=== PATIENT | female | born 1960 | race Asian ===

== ENCOUNTER 2018-04-02 22:12 | Inpatient (IN) | payer BC ==
[2018-04-03] MEDS ORDERED: hydrALAzine 20 MG INJ IV (03:30)
[2018-04-03] MEDS ORDERED: morphine SULFATE/PF (2 MG/2 ML) SYG IV (03:30)
[2018-04-03] MEDS ORDERED: LORAZEPAM 2 MG INJ IV (03:30)
[2018-04-03] MEDS ORDERED: DOCUSATE SODIUM 100 MG CAP PO (03:30)
[2018-04-03] MEDS ORDERED: ACETAMINOPHEN 325 MG TAB PO (03:30)
[2018-04-03] MEDS ORDERED: NITROGLYCERIN (SL) 0.4 MG TAB SL (03:30)
[2018-04-03] MEDS ORDERED: MAGNESIUM HYDROXIDE 30ML CUP PO (03:30)
[2018-04-03] MEDS ORDERED: ALBUTEROL/IPRATROPIUM (NEB) 3 ML AMP HHN (03:30)
[2018-04-03] MEDS ORDERED: HYDROCODONE/APAP (5/325) TAB PO (03:30)
[2018-04-03] MEDS ORDERED: ONDANSETRON 4 MG INJ IV (03:30)
[2018-04-03] MEDS ORDERED: NACL 0.9% 3 ML SYG IV (03:30)
[2018-04-03] MEDS: LORAZEPAM 2 MG INJ IV (03:57)
[2018-04-03] MEDS: SOD CHLORIDE 0.45% 1,000 ML IV ×2 (04:12→18:28)
[2018-04-03] MEDS: CEFTRIAXONE 1 GM/50 ML (PMX) 50 ML IVPB (04:12)
[2018-04-03] MEDS ORDERED: PENDING SANTYL ORDER FOR WOUND CARE XX (05:00)
[2018-04-03] MEDS: PANTOPRAZOLE 40 MG INJ IV (05:17)
[2018-04-03 05:35] LABS: ADD MAN DIFF? NO
[2018-04-03 05:38] LABS: BASOPHIL # 0.1 10^3/ul (0.0-0.1); BASOPHILS % 0.7 % (0.0-2.0); EOSINOPHILS # 0.2 10^3/ul (0.0-0.5); EOSINOPHILS % 2.7 % (0.0-7.0); HEMATOCRIT 31.4 % (37.0-47.0); HEMOGLOBIN 10.9 g/dl (12.0-16.0); LYMPHOCYTES # 0.9 10^3/ul (0.8-2.9); LYMPHOCYTES % 12.2 % (15.0-51.0); MEAN CORPUSCULAR HEMOGLOBIN 31.1 pg (29.0-33.0); MEAN CORPUSCULAR HGB CONC 34.7 g/dl (32.0-37.0); MEAN CORPUSCULAR VOLUME 89.5 fl (82.0-101.0); MEAN PLATELET VOLUME 8.1 fl (7.4-10.4); MONOCYTE # 0.4 10^3/ul (0.3-0.9); MONOCYTES % 6.1 % (0.0-11.0); NEUTROPHIL # 5.5 10^3/ul (1.6-7.5); PLATELET COUNT 293 10^3/UL (140-415); RED BLOOD COUNT 3.51 10^6/ul (4.20-5.40); RED CELL DISTRIBUTION WIDTH 11.9 % (11.5-14.5)
[2018-04-03 05:58] LABS: ANION GAP 12 (5-13); BLOOD UREA NITROGEN 4 mg/dl (7-20); CALCIUM 8.6 mg/dl (8.4-10.2); CARBON DIOXIDE 20 mmol/L (21-31); CHLORIDE 108 mmol/L (97-110); Estimated GFR > 60 mL/min (>60); GLUCOSE 79 mg/dl (70-220); POTASSIUM 3.2 mmol/L (3.5-5.1); SODIUM 140 mmol/L (135-144)
[2018-04-03 05:59] LABS: INR 0.99; PARTIAL THROMBOPLASTIN TIME 29.2 Sec (23.0-35.0); PROTIME 13.2 Sec (11.9-14.9)
[2018-04-03] MEDS: LEVETIRACETAM 500 MG (PMX) 100 ML IVPB (09:54)
[2018-04-03] MEDS: HEPARIN 5,000 UNIT/1 ML VIAL SC ×2 (10:01→22:22)
[2018-04-03 14:49] LABS: ADD UMIC YES; UR ASCORBIC ACID NEGATIVE (NEGATIVE); UR BACTERIA FEW /HPF (NONE SEEN); UR BILIRUBIN (Dip) NEGATIVE (NEGATIVE); UR BLOOD (Dip) 1+ mg/dL (NEGATIVE); UR BUDDING YEAST FEW /HPF (NONE SEEN); UR CLARITY CLOUDY (CLEAR); UR COLOR YELLOW (YELLOW); UR GLUCOSE (Dip) NEGATIVE (NEGATIVE); UR KETONES (Dip) 1+ mg/dL (NEGATIVE); UR LEUKOCYTE ESTERASE (Dip) 3+ Leu/ul (NEGATIVE); UR MUCUS FEW /HPF (NONE SEEN); UR NITRITE (Dip) POSITIVE (NEGATIVE); UR RBC 1 /HPF (0-5); UR SPECIFIC GRAVITY (Dip) 1.009 (1.003-1.030); UR TOTAL PROTEIN (Dip) NEGATIVE (NEGATIVE); UR UROBILINOGEN (Dip) NEGATIVE (NEGATIVE); UR WBC 17 /HPF (0-5)
[2018-04-03] MEDS: POTASSIUM CHLORIDE 100 ML IVPB ×2 (15:21→18:28)
[2018-04-04] MEDS: CEFTRIAXONE 1 GM/50 ML (PMX) 50 ML IVPB (04:12)
[2018-04-04] MEDS: SOD CHLORIDE 0.45% 1,000 ML IV (06:43)
[2018-04-04] MEDS: PANTOPRAZOLE 40 MG INJ IV (06:43)
[2018-04-04] MEDS ORDERED: ETOMIDATE 20 MG INJ (07:00)
[2018-04-04] MEDS ORDERED: SUCCINYLCHOLINE CHLORIDE 100 MG/5 ML SYG IV (07:00)
[2018-04-04 07:51] LABS: ADD MAN DIFF? NO
[2018-04-04 08:06] LABS: WHITE BLOOD COUNT 11.2 10^3/ul (4.8-10.8)
[2018-04-04 08:06] LABS: BASOPHIL # 0.1 10^3/ul (0.0-0.1); BASOPHILS % 0.5 % (0.0-2.0); EOSINOPHILS # 0.1 10^3/ul (0.0-0.5); EOSINOPHILS % 1.3 % (0.0-7.0); HEMATOCRIT 35.8 % (37.0-47.0); HEMOGLOBIN 12.4 g/dl (12.0-16.0); LYMPHOCYTES # 0.8 10^3/ul (0.8-2.9); LYMPHOCYTES % 7.3 % (15.0-51.0); MEAN CORPUSCULAR HEMOGLOBIN 31.4 pg (29.0-33.0); MEAN CORPUSCULAR HGB CONC 34.6 g/dl (32.0-37.0); MEAN CORPUSCULAR VOLUME 90.6 fl (82.0-101.0); MEAN PLATELET VOLUME 9.5 fl (7.4-10.4); MONOCYTE # 0.9 10^3/ul (0.3-0.9); MONOCYTES % 7.8 % (0.0-11.0); NEUTROPHIL # 9.3 10^3/ul (1.6-7.5); NEUTROPHILS % 82.9 % (39.0-77.0); PLATELET COUNT 270 10^3/UL (140-415); RED BLOOD COUNT 3.95 10^6/ul (4.20-5.40); RED CELL DISTRIBUTION WIDTH 11.9 % (11.5-14.5)
[2018-04-04 08:28] LABS: ANION GAP 7 (5-13); BLOOD UREA NITROGEN 3 mg/dl (7-20); CALCIUM 8.8 mg/dl (8.4-10.2); CARBON DIOXIDE 19 mmol/L (21-31); CHLORIDE 105 mmol/L (97-110); CHOL/HDL RATIO 3.8 RATIO; CHOLESTEROL 173 mg/dl (100-200); CREATININE 0.27 mg/dl (0.44-1.00); Estimated GFR > 60 mL/min (>60); GLUCOSE 74 mg/dl (70-220); HDL CHOLESTEROL 45 mg/dl (35-98); LDL CHOLESTEROL,CALCULATED 116 mg/dl; MAGNESIUM 1.7 mg/dl (1.7-2.5); PHOSPHORUS 4.1 mg/dl (2.5-4.9); POTASSIUM 4.4 mmol/L (3.5-5.1); SODIUM 131 mmol/L (135-144); TRIGLYCERIDES 60 mg/dl (0-149)
[2018-04-04] MEDS: PHENYTOIN 1,000 MG in SOD CHLORIDE 0.9% 100 ML IV (08:57)
[2018-04-04] MEDS: LEVETIRACETAM 500 MG (PMX) 100 ML IVPB ×3 (08:57→23:00)
[2018-04-04 09:23] LABS: ALANINE AMINOTRANSFERASE 19 IU/L (13-69); ALBUMIN 3.2 g/dl (3.3-4.9); ASPARTATE AMINO TRANSFERASE 26 IU/L (15-46); BILIRUBIN,INDIRECT 0.1 mg/dl (0-1.1); BILIRUBIN,TOTAL 0.1 mg/dl (0.2-1.3); TOTAL PROTEIN 5.8 g/dl (6.1-8.1)
[2018-04-04 09:24] LABS: ALKALINE PHOSPHATASE < 20 IU/L (42-121)
[2018-04-04] MEDS: HEPARIN 5,000 UNIT/1 ML VIAL SC ×2 (10:52→22:00)
[2018-04-04 11:47] LABS: HEMOGLOBIN A1C 5.5 % (0-5.9)
[2018-04-04] MEDS: DEXTROSE 5%-0.45% NACL 1,000 ML IV (17:26)
[2018-04-04] MEDS ORDERED: PHENOBARBITAL 65 MG INJ IV ×4 (17:30→20:30)
[2018-04-04] MEDS ORDERED: PHENOBARBITAL IVPB (18:30)
[2018-04-04] MEDS ORDERED: SOD CHLORIDE 0.9% IVPB (18:30)
[2018-04-04] MEDS: PHENOBARBITAL IV (19:30)
[2018-04-04] MEDS: SOD CHLORIDE 0.9% IV (19:30)
[2018-04-04 20:59] LABS: AADO2 Arterial 60.7 mmHg (7.0-24.0); Allen Test ACCEPTAB; Arterial Base Excess -7.2 mmol/L (-3.0-3); Arterial Blood Gas Oxygen Sat 99.5 mmHG (95.0-98.0); Arterial COHb 0.3 % (0.0-3.0); Arterial Fraction of Oxyhgb 98.8 % (93.0-99.0); Arterial MetHb 0.4 % (0.0-1.5); Arterial pCO2 26.4 mmhg (35-45); MODE VENT - AC; Site Right Radial
[2018-04-04] MEDS: NORepinephrine 8MG/250 ML (PMX 250 ML IV (21:00)
[2018-04-04] MEDS: PROPOFOL 100 ML IV ×2 (21:00)
[2018-04-04] MEDS ORDERED: NORepinephrine 8MG/250 ML (PMX 250 ML (22:14)
[2018-04-05] MEDS ORDERED: SOD CHLORIDE 0.9% 250 ML IV
[2018-04-05] MEDS: SOD CHLORIDE 0.9% 1,000 ML IV
[2018-04-05 01:08] LABS: LACTIC ACID 1.5 mmol/L (0.5-2.0)
[2018-04-05] MEDS: CEFTRIAXONE 1 GM/50 ML (PMX) 50 ML IVPB (03:30)
[2018-04-05] MEDS ORDERED: VANCOMYCIN IV PER PHARMACY XX (04:30)
[2018-04-05 05:11] LABS: ADD MAN DIFF? NO
[2018-04-05 05:30] LABS: BASOPHILS % 0.3 % (0.0-2.0); EOSINOPHILS # 0.1 10^3/ul (0.0-0.5); EOSINOPHILS % 0.6 % (0.0-7.0); HEMATOCRIT 32.5 % (37.0-47.0); HEMOGLOBIN 11.7 g/dl (12.0-16.0); LYMPHOCYTES # 1.3 10^3/ul (0.8-2.9); LYMPHOCYTES % 10.9 % (15.0-51.0); MEAN CORPUSCULAR HEMOGLOBIN 31.6 pg (29.0-33.0); MEAN CORPUSCULAR VOLUME 87.8 fl (82.0-101.0); MEAN PLATELET VOLUME 8.9 fl (7.4-10.4); MONOCYTE # 0.7 10^3/ul (0.3-0.9); MONOCYTES % 6.2 % (0.0-11.0); NEUTROPHIL # 9.8 10^3/ul (1.6-7.5); NEUTROPHILS % 81.7 % (39.0-77.0); PLATELET COUNT 290 10^3/UL (140-415); RED CELL DISTRIBUTION WIDTH 11.7 % (11.5-14.5)
[2018-04-05] MEDS: PANTOPRAZOLE 40 MG INJ IV (05:38)
[2018-04-05] MEDS: VANCOMYCIN 1 GM 250 ML IVPB (05:39)
[2018-04-05] MEDS: DEXTROSE 5%-0.45% NACL 1,000 ML IV ×2 (05:42→19:26)
[2018-04-05] MEDS ORDERED: VANCOMYCIN 750 MG (PMX) 250 ML IVPB (06:00)
[2018-04-05 06:02] LABS: PHENYTOIN (DILANTIN) 19.2 ug/ml (10.0-20.0)
[2018-04-05 06:13] LABS: ANION GAP 5 (5-13); BLOOD UREA NITROGEN 3 mg/dl (7-20); CALCIUM 8.3 mg/dl (8.4-10.2); CARBON DIOXIDE 17 mmol/L (21-31); CHLORIDE 111 mmol/L (97-110); CREATININE 0.28 mg/dl (0.44-1.00); Estimated GFR > 60 mL/min (>60); GLUCOSE 201 mg/dl (70-220); POTASSIUM 3.7 mmol/L (3.5-5.1); SODIUM 133 mmol/L (135-144)
[2018-04-05 07:27] LABS: AADO2 Arterial 38.9 mmHg (7.0-24.0); Allen Test ACCEPTAB; Arterial Base Excess -6.7 mmol/L (-3.0-3); Arterial Blood Gas Oxygen Sat 98.8 mmHG (95.0-98.0); Arterial COHb 0.3 % (0.0-3.0); Arterial Fraction of Oxyhgb 98.3 % (93.0-99.0); Arterial HCO3 16.8 mmol/L (22.0-26.0); Arterial MetHb 0.2 % (0.0-1.5); Arterial pCO2 27.8 mmhg (35-45); MODE VENT - AC; Site Right Radial
[2018-04-05 07:33] LABS: LACTIC ACID 1.6 mmol/L (0.5-2.0)
[2018-04-05] MEDS: PROPOFOL 100 ML IV ×2 (09:00→21:00)
[2018-04-05] MEDS: LEVETIRACETAM 500 MG (PMX) 100 ML IVPB (09:58)
[2018-04-05] MEDS: HEPARIN 5,000 UNIT/1 ML VIAL SC ×2 (09:58→21:19)
[2018-04-05] MEDS ORDERED: BALSAM PERU/CASTOR OIL 60 GM TUBE TOP (10:30)
[2018-04-05] MEDS: FLUCONAZOLE 200 MG (PMX) 100 ML IVPB (12:25)
[2018-04-05 12:42] LABS: ADD UMIC YES; UR ASCORBIC ACID NEGATIVE (NEGATIVE); UR BILIRUBIN (Dip) NEGATIVE (NEGATIVE); UR BLOOD (Dip) 2+ mg/dL (NEGATIVE); UR CLARITY TURBID (CLEAR); UR COLOR AMBER (YELLOW); UR GLUCOSE (Dip) NEGATIVE (NEGATIVE); UR KETONES (Dip) TRACE mg/dL (NEGATIVE); UR LEUKOCYTE ESTERASE (Dip) 1+ Leu/ul (NEGATIVE); UR NITRITE (Dip) NEGATIVE (NEGATIVE); UR RBC 0 /HPF (0-5); UR SPECIFIC GRAVITY (Dip) 1.009 (1.003-1.030); UR TOTAL PROTEIN (Dip) 2+ mg/dl (NEGATIVE); UR UROBILINOGEN (Dip) NEGATIVE (NEGATIVE); UR WBC 0 /HPF (0-5)
[2018-04-05 12:47] LABS: UR BACTERIA MANY /HPF (NONE SEEN); URINE RBCS >50 /HPF (0)
[2018-04-05 12:49] LABS: UR AMORPHOUS CRYSTAL MANY /HPF (NONE SEEN); URINE SPECIFIC GRAVITY (Dip) 1.009 (1.003-1.030)
[2018-04-05] MEDS: LIDOCAINE 1% (MPF) 5 ML VIAL SC (13:15)
[2018-04-05] MEDS: COLLAGENASE 5 GM (UD JAR) TOP (14:52)
[2018-04-05] MEDS: NORepinephrine 8MG/250 ML (PMX 250 ML IV (16:03)
[2018-04-05] MEDS: PHENOBARBITAL 65 MG INJ IV ×2 (16:16→21:15)
[2018-04-06] MEDS: CEFTRIAXONE 1 GM/50 ML (PMX) 50 ML IVPB (03:32)
[2018-04-06 03:52] LABS: PHENOBARBITAL 26.6 mg/L (15.0-40.0)
[2018-04-06 05:25] LABS: ADD MAN DIFF? NO
[2018-04-06 06:10] LABS: BASOPHILS % 0.3 % (0.0-2.0); EOSINOPHILS # 0.2 10^3/ul (0.0-0.5); EOSINOPHILS % 1.6 % (0.0-7.0); HEMATOCRIT 36.3 % (37.0-47.0); HEMOGLOBIN 12.8 g/dl (12.0-16.0); LYMPHOCYTES # 1.2 10^3/ul (0.8-2.9); LYMPHOCYTES % 10.1 % (15.0-51.0); MEAN CORPUSCULAR HGB CONC 35.3 g/dl (32.0-37.0); MEAN CORPUSCULAR VOLUME 90.8 fl (82.0-101.0); MEAN PLATELET VOLUME 8.6 fl (7.4-10.4); MONOCYTE # 1.4 10^3/ul (0.3-0.9); MONOCYTES % 11.6 % (0.0-11.0); NEUTROPHIL # 9.1 10^3/ul (1.6-7.5); NEUTROPHILS % 76.1 % (39.0-77.0); PLATELET COUNT 257 10^3/UL (140-415); RED CELL DISTRIBUTION WIDTH 12.5 % (11.5-14.5)
[2018-04-06] MEDS: PANTOPRAZOLE 40 MG INJ IV (06:10)
[2018-04-06 06:52] LABS: ANION GAP 10 (5-13); BLOOD UREA NITROGEN 3 mg/dl (7-20); CALCIUM 8.5 mg/dl (8.4-10.2); CARBON DIOXIDE 16 mmol/L (21-31); CHLORIDE 110 mmol/L (97-110); CREATININE 0.62 mg/dl (0.44-1.00); Estimated GFR > 60 mL/min (>60); GLUCOSE 159 mg/dl (70-220); SODIUM 136 mmol/L (135-144)
[2018-04-06 06:53] LABS: POTASSIUM 3.9 mmol/L (3.5-5.1)
[2018-04-06] MEDS: PHENOBARBITAL 65 MG INJ IV ×2 (08:43→20:43)
[2018-04-06] MEDS: HEPARIN 5,000 UNIT/1 ML VIAL SC ×2 (08:44→20:44)
[2018-04-06] MEDS: COLLAGENASE 5 GM (UD JAR) TOP (08:47)
[2018-04-06] MEDS: DEXTROSE 5%-0.45% NACL 1,000 ML IV ×2 (08:50→22:32)
[2018-04-06] MEDS: PROPOFOL 100 ML IV ×2 (09:00→20:44)
[2018-04-06] MEDS: FLUCONAZOLE 200 MG (PMX) 100 ML IVPB (11:39)
[2018-04-06] MEDS: NORepinephrine 8MG/250 ML (PMX 250 ML IV (14:09)
[2018-04-06] MEDS: VANCOMYCIN 750 MG (PMX) 250 ML IVPB (16:50)
[2018-04-06] MEDS ORDERED: VANCOMYCIN IV PER PHARMACY XX (17:00)
[2018-04-07] MEDS: CEFTRIAXONE 1 GM/50 ML (PMX) 50 ML IVPB (02:56)
[2018-04-07 04:50] LABS: ADD MAN DIFF? NO
[2018-04-07 04:52] LABS: BASOPHIL # 0.1 10^3/ul (0.0-0.1); BASOPHILS % 0.5 % (0.0-2.0); EOSINOPHILS # 0.3 10^3/ul (0.0-0.5); HEMATOCRIT 31.8 % (37.0-47.0); HEMOGLOBIN 11.1 g/dl (12.0-16.0); LYMPHOCYTES # 1.2 10^3/ul (0.8-2.9); LYMPHOCYTES % 10.5 % (15.0-51.0); MEAN CORPUSCULAR HEMOGLOBIN 31.3 pg (29.0-33.0); MEAN CORPUSCULAR HGB CONC 34.9 g/dl (32.0-37.0); MEAN CORPUSCULAR VOLUME 89.6 fl (82.0-101.0); MONOCYTES % 9.2 % (0.0-11.0); NEUTROPHIL # 8.5 10^3/ul (1.6-7.5); NEUTROPHILS % 76.4 % (39.0-77.0); PLATELET COUNT 166 10^3/UL (140-415); RED BLOOD COUNT 3.55 10^6/ul (4.20-5.40); RED CELL DISTRIBUTION WIDTH 12.6 % (11.5-14.5)
[2018-04-07 04:52] LABS: WHITE BLOOD COUNT 11.2 10^3/ul (4.8-10.8)
[2018-04-07 05:11] LABS: MAGNESIUM 1.5 mg/dl (1.7-2.5)
[2018-04-07 05:11] LABS: PHOSPHORUS 1.8 mg/dl (2.5-4.9)
[2018-04-07] MEDS: PANTOPRAZOLE 40 MG INJ IV (05:12)
[2018-04-07 05:15] LABS: ANION GAP 4 (5-13); BLOOD UREA NITROGEN 6 mg/dl (7-20); CALCIUM 7.8 mg/dl (8.4-10.2); CARBON DIOXIDE 24 mmol/L (21-31); CHLORIDE 111 mmol/L (97-110); CREATININE 0.58 mg/dl (0.44-1.00); Estimated GFR > 60 mL/min (>60); GLUCOSE 148 mg/dl (70-220); SODIUM 139 mmol/L (135-144)
[2018-04-07 05:21] LABS: POTASSIUM 2.6 mmol/L (3.5-5.1)
[2018-04-07] MEDS: MAGNESIUM SULFATE 3 GM in DEXTROSE 5% 100 ML IVPB (05:54)
[2018-04-07] MEDS: POTASSIUM CHLORIDE 100 ML IVPB ×3 (05:54→09:50)
[2018-04-07] MEDS: PHENOBARBITAL 65 MG INJ IV (08:32)
[2018-04-07] MEDS: COLLAGENASE 5 GM (UD JAR) TOP (08:32)
[2018-04-07] MEDS: HEPARIN 5,000 UNIT/1 ML VIAL SC ×2 (08:32→21:07)
[2018-04-07] MEDS: PROPOFOL 100 ML IV ×2 (09:00→19:37)
[2018-04-07] MEDS ORDERED: morphine 2 MG INJ IV (11:30)
[2018-04-07] MEDS: DEXTROSE 5%-0.45% NACL 1,000 ML IV (11:46)
[2018-04-07] MEDS: FLUCONAZOLE 200 MG (PMX) 100 ML IVPB (12:36)
[2018-04-07] MEDS: CEFEPIME 1GM/50 ML (PMX) 50 ML IVPB ×2 (13:46→21:06)
[2018-04-07] MEDS: NORepinephrine 8MG/250 ML (PMX 250 ML IV (15:22)
[2018-04-07] MEDS: VANCOMYCIN 750 MG (PMX) 250 ML IVPB (16:44)
[2018-04-08] MEDS: DEXTROSE 5%-0.45% NACL 1,000 ML IV ×2 (01:59→20:16)
[2018-04-08 04:55] LABS: ADD MAN DIFF? NO
[2018-04-08 05:00] LABS: BASOPHILS % 0.4 % (0.0-2.0); EOSINOPHILS # 0.6 10^3/ul (0.0-0.5); EOSINOPHILS % 5.3 % (0.0-7.0); HEMATOCRIT 27.6 % (37.0-47.0); HEMOGLOBIN 9.6 g/dl (12.0-16.0); LYMPHOCYTES # 0.9 10^3/ul (0.8-2.9); LYMPHOCYTES % 8.5 % (15.0-51.0); MEAN CORPUSCULAR HEMOGLOBIN 31.6 pg (29.0-33.0); MEAN CORPUSCULAR HGB CONC 34.8 g/dl (32.0-37.0); MEAN CORPUSCULAR VOLUME 90.8 fl (82.0-101.0); MEAN PLATELET VOLUME 9.6 fl (7.4-10.4); MONOCYTE # 1.1 10^3/ul (0.3-0.9); MONOCYTES % 10.7 % (0.0-11.0); NEUTROPHIL # 7.9 10^3/ul (1.6-7.5); NEUTROPHILS % 74.6 % (39.0-77.0); PLATELET COUNT 160 10^3/UL (140-415); RED BLOOD COUNT 3.04 10^6/ul (4.20-5.40)
[2018-04-08 05:00] LABS: WHITE BLOOD COUNT 10.5 10^3/ul (4.8-10.8)
[2018-04-08] MEDS: PANTOPRAZOLE 40 MG INJ IV (05:09)
[2018-04-08 05:42] LABS: ANION GAP 4 (5-13); BLOOD UREA NITROGEN 10 mg/dl (7-20); CALCIUM 7.8 mg/dl (8.4-10.2); CARBON DIOXIDE 26 mmol/L (21-31); CHLORIDE 103 mmol/L (97-110); Estimated GFR > 60 mL/min (>60); GLUCOSE 157 mg/dl (70-220); SODIUM 133 mmol/L (135-144)
[2018-04-08 05:45] LABS: PHOSPHORUS 1.6 mg/dl (2.5-4.9)
[2018-04-08 05:45] LABS: MAGNESIUM 2.1 mg/dl (1.7-2.5)
[2018-04-08] MEDS: POTASSIUM CHLORIDE 100 ML IVPB ×3 (08:32→14:25)
[2018-04-08] MEDS: PROPOFOL 100 ML IV ×2 (08:33→20:09)
[2018-04-08] MEDS: SOD PHOS MONO/DIBAS 250 MG TAB NGT (10:22)
[2018-04-08] MEDS: CEFEPIME 1GM/50 ML (PMX) 50 ML IVPB ×2 (10:22→20:16)
[2018-04-08] MEDS: COLLAGENASE 5 GM (UD JAR) TOP (10:22)
[2018-04-08] MEDS: HEPARIN 5,000 UNIT/1 ML VIAL SC ×2 (10:27→20:18)
[2018-04-08] MEDS: FLUCONAZOLE 200 MG (PMX) 100 ML IVPB (12:29)
[2018-04-08 14:10] LABS: HEPATITIS C VIRAL ANTIBODY NEGATIVE (NEGATIVE)
[2018-04-08 14:29] LABS: HEPATITIS B SURFACE ANTIGEN POSITIVE (NEGATIVE)
[2018-04-08] MEDS: POTASSIUM PHOSPHATE 20 MEQ in SOD CHLORIDE 0.9% 250 ML IVPB (17:15)
[2018-04-08 19:55] LABS: RAPID PLASMA REAGIN NONREACTIVE (NR)
[2018-04-08] MEDS: LEVETIRACETAM 500 MG (PMX) 100 ML IVPB (20:13)
[2018-04-09] MEDS: DEXTROSE 5%-0.45% NACL 1,000 ML IV (03:40)
[2018-04-09 04:55] LABS: ADD MAN DIFF? NO
[2018-04-09 05:00] LABS: BASOPHILS % 0.3 % (0.0-2.0); EOSINOPHILS # 0.4 10^3/ul (0.0-0.5); EOSINOPHILS % 3.7 % (0.0-7.0); HEMATOCRIT 24.2 % (37.0-47.0); LYMPHOCYTES % 10.3 % (15.0-51.0); MEAN CORPUSCULAR HGB CONC 33.1 g/dl (32.0-37.0); MEAN CORPUSCULAR VOLUME 96.8 fl (82.0-101.0); MEAN PLATELET VOLUME 10.5 fl (7.4-10.4); MONOCYTE # 1.1 10^3/ul (0.3-0.9); MONOCYTES % 11.8 % (0.0-11.0); NEUTROPHIL # 6.9 10^3/ul (1.6-7.5); NEUTROPHILS % 73.4 % (39.0-77.0); PLATELET COUNT 151 10^3/UL (140-415); RED CELL DISTRIBUTION WIDTH 13.4 % (11.5-14.5)
[2018-04-09 05:00] LABS: WHITE BLOOD COUNT 9.4 10^3/ul (4.8-10.8)
[2018-04-09 05:06] LABS: AADO2 Arterial 11.4 mmHg (7.0-24.0); Allen Test ACCEPTAB; Arterial Blood Gas Oxygen Sat 98.7 mmHG (95.0-98.0); Arterial COHb 0.3 % (0.0-3.0); Arterial Fraction of Oxyhgb 98.2 % (93.0-99.0); Arterial HCO3 22.5 mmol/L (22.0-26.0); Arterial MetHb 0.2 % (0.0-1.5); Arterial pCO2 32.9 mmhg (35-45); MODE VENT - AC; Site Right Radial
[2018-04-09] MEDS: PANTOPRAZOLE 40 MG INJ IV (05:08)
[2018-04-09 05:11] LABS: POSITIVE DIFF @See below
[2018-04-09 05:24] LABS: LACTIC ACID 1.1 mmol/L (0.5-2.0)
[2018-04-09 05:25] LABS: PHOSPHORUS 2.3 mg/dl (2.5-4.9)
[2018-04-09 06:45] LABS: ANION GAP 3 (5-13); BLOOD UREA NITROGEN 10 mg/dl (7-20); CALCIUM 7.6 mg/dl (8.4-10.2); CARBON DIOXIDE 23 mmol/L (21-31); CHLORIDE 104 mmol/L (97-110); CREATININE 0.47 mg/dl (0.44-1.00); Estimated GFR > 60 mL/min (>60); GLUCOSE 146 mg/dl (70-220); POTASSIUM 4.6 mmol/L (3.5-5.1); SODIUM 130 mmol/L (135-144)
[2018-04-09] MEDS: PROPOFOL 100 ML IV ×2 (09:00→21:00)
[2018-04-09] MEDS: COLLAGENASE 5 GM (UD JAR) TOP (09:52)
[2018-04-09] MEDS: CEFEPIME 1GM/50 ML (PMX) 50 ML IVPB ×2 (09:53→20:46)
[2018-04-09] MEDS: DEXTROSE 5%-LR 1,000 ML IV (09:54)
[2018-04-09] MEDS: HEPARIN 5,000 UNIT/1 ML VIAL SC ×2 (10:09→20:48)
[2018-04-09 11:17] LABS: OCCULT BLOOD STOOL NEGATIVE (NEGATIVE)
[2018-04-09] MEDS: LEVETIRACETAM 500 MG (PMX) 100 ML IVPB ×2 (12:16→20:46)
[2018-04-09] MEDS: NORepinephrine 8MG/250 ML (PMX 250 ML IV (16:40)
[2018-04-10 04:52] LABS: ADD MAN DIFF? NO
[2018-04-10 05:09] LABS: ABNORMAL IP MESSAGE 1; BASOPHIL # 0.1 10^3/ul (0.0-0.1); BASOPHILS % 0.5 % (0.0-2.0); EOSINOPHILS # 0.4 10^3/ul (0.0-0.5); EOSINOPHILS % 3.6 % (0.0-7.0); HEMATOCRIT 26.4 % (37.0-47.0); HEMOGLOBIN 8.9 g/dl (12.0-16.0); LYMPHOCYTES # 1.5 10^3/ul (0.8-2.9); LYMPHOCYTES % 14.2 % (15.0-51.0); MEAN CORPUSCULAR HEMOGLOBIN 31.2 pg (29.0-33.0); MEAN CORPUSCULAR HGB CONC 33.7 g/dl (32.0-37.0); MEAN CORPUSCULAR VOLUME 92.6 fl (82.0-101.0); MEAN PLATELET VOLUME 11.2 fl (7.4-10.4); MONOCYTE # 1.5 10^3/ul (0.3-0.9); MONOCYTES % 14.9 % (0.0-11.0); NEUTROPHIL # 6.8 10^3/ul (1.6-7.5); NEUTROPHILS % 66.1 % (39.0-77.0); RED BLOOD COUNT 2.85 10^6/ul (4.20-5.40); RED CELL DISTRIBUTION WIDTH 13.2 % (11.5-14.5)
[2018-04-10 05:09] LABS: WHITE BLOOD COUNT 10.3 10^3/ul (4.8-10.8)
[2018-04-10 05:14] LABS: POSITIVE DIFF @See below
[2018-04-10 05:16] LABS: LACTIC ACID 1.4 mmol/L (0.5-2.0)
[2018-04-10 05:18] LABS: ANION GAP 1 (5-13); BLOOD UREA NITROGEN 11 mg/dl (7-20); CALCIUM 7.7 mg/dl (8.4-10.2); CARBON DIOXIDE 29 mmol/L (21-31); CHLORIDE 105 mmol/L (97-110); CREATININE 0.48 mg/dl (0.44-1.00); Estimated GFR > 60 mL/min (>60); GLUCOSE 138 mg/dl (70-220); POTASSIUM 3.7 mmol/L (3.5-5.1); SODIUM 135 mmol/L (135-144)
[2018-04-10] MEDS: PANTOPRAZOLE 40 MG INJ IV (05:43)
[2018-04-10 08:01] LABS: PLATELET COUNT 108 10^3/UL (140-415)
[2018-04-10] MEDS: LEVETIRACETAM 500 MG (PMX) 100 ML IVPB (08:18)
[2018-04-10] MEDS: COLLAGENASE 5 GM (UD JAR) TOP (08:20)
[2018-04-10] MEDS: HEPARIN 5,000 UNIT/1 ML VIAL SC ×2 (08:22→20:40)
[2018-04-10] MEDS: PROPOFOL 100 ML IV ×2 (09:00→21:00)
[2018-04-10] MEDS: CEFEPIME 1GM/50 ML (PMX) 50 ML IVPB ×2 (09:43→20:38)
[2018-04-10 11:03] LABS: PHOSPHORUS 3.6 mg/dl (2.5-4.9)
[2018-04-10 12:53] LABS: VARICELLA-ZOSTER VIRUS AB IgM 0.26
[2018-04-10] MEDS: BALSAM PERU/CASTOR OIL 60 GM TUBE TOP ×2 (15:00→20:45)
[2018-04-10] MEDS: LEVETIRACETAM IV 250 MG in DEXTROSE 5% 100 ML IVPB (20:38)
[2018-04-11 00:53] LABS: PHENOBARBITAL 17.4 mg/L (15.0-40.0)
[2018-04-11 05:29] LABS: ADD MAN DIFF? NO
[2018-04-11 05:44] LABS: BASOPHILS % 0.3 % (0.0-2.0); EOSINOPHILS # 0.4 10^3/ul (0.0-0.5); EOSINOPHILS % 3.6 % (0.0-7.0); HEMATOCRIT 25.8 % (37.0-47.0); HEMOGLOBIN 8.7 g/dl (12.0-16.0); LYMPHOCYTES # 1.4 10^3/ul (0.8-2.9); LYMPHOCYTES % 11.5 % (15.0-51.0); MEAN CORPUSCULAR HEMOGLOBIN 31.4 pg (29.0-33.0); MEAN CORPUSCULAR HGB CONC 33.7 g/dl (32.0-37.0); MEAN CORPUSCULAR VOLUME 93.1 fl (82.0-101.0); MEAN PLATELET VOLUME 10.6 fl (7.4-10.4); MONOCYTE # 1.3 10^3/ul (0.3-0.9); MONOCYTES % 10.7 % (0.0-11.0); NEUTROPHIL # 8.8 10^3/ul (1.6-7.5); NEUTROPHILS % 73.1 % (39.0-77.0); RED BLOOD COUNT 2.77 10^6/ul (4.20-5.40); RED CELL DISTRIBUTION WIDTH 12.8 % (11.5-14.5)
[2018-04-11 06:13] LABS: ANION GAP 5 (5-13); BLOOD UREA NITROGEN 13 mg/dl (7-20); CALCIUM 8.1 mg/dl (8.4-10.2); CARBON DIOXIDE 29 mmol/L (21-31); CHLORIDE 98 mmol/L (97-110); Estimated GFR > 60 mL/min (>60); GLUCOSE 139 mg/dl (70-220); MAGNESIUM 1.8 mg/dl (1.7-2.5); POTASSIUM 3.7 mmol/L (3.5-5.1); SODIUM 132 mmol/L (135-144)
[2018-04-11] MEDS: LANSOPRAZOLE 30 MG CAP PO (06:17)
[2018-04-11] MEDS: DEXTROSE 5%-LR 1,000 ML IV ×2 (06:17→09:00)
[2018-04-11 06:19] LABS: ALANINE AMINOTRANSFERASE 22 IU/L (13-69); ALBUMIN 1.8 g/dl (3.3-4.9); ALKALINE PHOSPHATASE 28 IU/L (42-121); ASPARTATE AMINO TRANSFERASE 23 IU/L (15-46); TOTAL PROTEIN 3.9 g/dl (6.1-8.1)
[2018-04-11 06:34] LABS: PLATELET COUNT 170 10^3/UL (140-415); POSITIVE DIFF @See below
[2018-04-11 06:36] LABS: AMMONIA 17 umol/l (9-30)
[2018-04-11] MEDS: BALSAM PERU/CASTOR OIL 60 GM TUBE TOP ×2 (08:06→20:38)
[2018-04-11] MEDS: COLLAGENASE 5 GM (UD JAR) TOP (08:06)
[2018-04-11] MEDS: CEFEPIME 1GM/50 ML (PMX) 50 ML IVPB ×2 (08:06→20:37)
[2018-04-11] MEDS: HEPARIN 5,000 UNIT/1 ML VIAL SC ×2 (08:11→20:39)
[2018-04-11] MEDS: PROPOFOL 100 ML IV ×2 (09:00→21:00)
[2018-04-11] MEDS: LEVETIRACETAM IV 250 MG in DEXTROSE 5% 100 ML IVPB ×2 (09:13→21:19)
[2018-04-11 14:53] LABS: HSV 2 IGG ANTIBODY <0.90 index
[2018-04-12 05:29] LABS: ADD MAN DIFF? NO
[2018-04-12] MEDS: LANSOPRAZOLE 30 MG CAP PO (05:56)
[2018-04-12 06:02] LABS: ANION GAP 5 (5-13); BLOOD UREA NITROGEN 11 mg/dl (7-20); CARBON DIOXIDE 29 mmol/L (21-31); CHLORIDE 96 mmol/L (97-110); CREATININE 0.34 mg/dl (0.44-1.00); Estimated GFR > 60 mL/min (>60); GLUCOSE 110 mg/dl (70-220); POTASSIUM 4.3 mmol/L (3.5-5.1); SODIUM 130 mmol/L (135-144)
[2018-04-12 07:59] LABS: AADO2 Arterial 83.5 mmHg (7.0-24.0); Allen Test ACCEPTAB; Arterial Base Excess 5.1 mmol/L (-3.0-3); Arterial Blood Gas Oxygen Sat 96.6 mmHG (95.0-98.0); Arterial COHb 0.3 % (0.0-3.0); Arterial Fraction of Oxyhgb 96.1 % (93.0-99.0); Arterial HCO3 28.2 mmol/L (22.0-26.0); Arterial MetHb 0.2 % (0.0-1.5); Arterial pCO2 35.6 mmhg (35-45); MODE VENT - AC; Site Right Radial
[2018-04-12 08:07] LABS: HEMATOCRIT 25.8 % (37.0-47.0); HEMOGLOBIN 8.6 g/dl (12.0-16.0); MEAN CORPUSCULAR HEMOGLOBIN 31.2 pg (29.0-33.0); MEAN CORPUSCULAR HGB CONC 33.3 g/dl (32.0-37.0); MEAN CORPUSCULAR VOLUME 93.5 fl (82.0-101.0); MEAN PLATELET VOLUME 11.3 fl (7.4-10.4); NUCLEATED RED BLOOD CELLS% 0.4 /100WBC (0.0-0.0); PLATELET COUNT 189 10^3/UL (140-415); RED BLOOD COUNT 2.76 10^6/ul (4.20-5.40); RED CELL DISTRIBUTION WIDTH 12.9 % (11.5-14.5)
[2018-04-12 08:09] LABS: WHITE BLOOD COUNT 5.7 10^3/ul (4.8-10.8)
[2018-04-12 08:10] LABS: POSITIVE DIFF @See below
[2018-04-12] MEDS: COLLAGENASE 5 GM (UD JAR) TOP (08:36)
[2018-04-12] MEDS: CEFEPIME 1GM/50 ML (PMX) 50 ML IVPB ×2 (08:36→20:59)
[2018-04-12] MEDS: BALSAM PERU/CASTOR OIL 60 GM TUBE TOP ×2 (08:37→21:03)
[2018-04-12] MEDS: HEPARIN 5,000 UNIT/1 ML VIAL SC ×2 (08:45→21:00)
[2018-04-12] MEDS: PROPOFOL 100 ML IV ×2 (09:00→21:00)
[2018-04-12] MEDS: LEVETIRACETAM IV 250 MG in DEXTROSE 5% 100 ML IVPB ×2 (09:43→20:59)
[2018-04-12] MEDS ORDERED: NORepinephrine 8MG/250 ML (PMX 250 ML IV (10:30)
[2018-04-12 10:32] LABS: ANISOCYTOSIS 1+ (0-0); BAND NEUTROPHILS #M 0.3 10^3/ul (0.0-0.6); BAND NEUTROPHILS % (M) 7 % (0-4); EOSINOPHILS % (M) 3 % (0-7); LYMPHOCYTES #M 0.9 10^3/ul (0.8-2.9); LYMPHOCYTES % (M) 16 % (15-51); MONOCYTE #M 0.2 10^3/ul (0.3-0.9); MONOCYTES % (M) 5 % (0-11); PLATELET ESTIMATE NORMAL; POLYCHROMASIA 1+ (0-0); REACTIVE LYMPHOCYTES #M 0.1 10^3/ul (0.0-0.0); REACTIVE LYMPHOCYTES% (M) 3 % (0-0); SEG NEUT #M 3.8 10^3/ul (1.6-7.5); SEGMENTED NEUTROPHILS (M) % 66 % (39-77); SMUDGE%M 14 % (0-0)
[2018-04-12] MEDS: FUROSEMIDE 20 MG INJ IV (11:23)
[2018-04-12] MEDS: MAGNESIUM SULFATE 1 GM/D5W 100 ML IVPB (17:04)
[2018-04-13 02:12] LABS: HEPATITIS B SURFACE ANTIGEN REACTIVE (NON-REACTIVE)
[2018-04-13 05:12] LABS: ADD MAN DIFF? NO
[2018-04-13 05:20] LABS: WHITE BLOOD COUNT 11.8 10^3/ul (4.8-10.8)
[2018-04-13 05:20] LABS: BASOPHILS % 0.3 % (0.0-2.0); EOSINOPHILS # 0.4 10^3/ul (0.0-0.5); EOSINOPHILS % 3.1 % (0.0-7.0); HEMATOCRIT 26.3 % (37.0-47.0); HEMOGLOBIN 8.8 g/dl (12.0-16.0); LYMPHOCYTES # 1.4 10^3/ul (0.8-2.9); LYMPHOCYTES % 12.1 % (15.0-51.0); MEAN CORPUSCULAR HEMOGLOBIN 30.9 pg (29.0-33.0); MEAN CORPUSCULAR HGB CONC 33.5 g/dl (32.0-37.0); MEAN CORPUSCULAR VOLUME 92.3 fl (82.0-101.0); MEAN PLATELET VOLUME 10.2 fl (7.4-10.4); MONOCYTE # 1.2 10^3/ul (0.3-0.9); MONOCYTES % 9.8 % (0.0-11.0); NEUTROPHIL # 8.7 10^3/ul (1.6-7.5); NEUTROPHILS % 73.7 % (39.0-77.0); PLATELET COUNT 257 10^3/UL (140-415); RED BLOOD COUNT 2.85 10^6/ul (4.20-5.40); RED CELL DISTRIBUTION WIDTH 12.5 % (11.5-14.5)
[2018-04-13] MEDS: LANSOPRAZOLE 30 MG CAP PO (05:25)
[2018-04-13 05:36] LABS: ANION GAP 7 (5-13); BLOOD UREA NITROGEN 12 mg/dl (7-20); CALCIUM 7.8 mg/dl (8.4-10.2); CARBON DIOXIDE 30 mmol/L (21-31); CHLORIDE 94 mmol/L (97-110); CREATININE 0.36 mg/dl (0.44-1.00); Estimated GFR > 60 mL/min (>60); GLUCOSE 101 mg/dl (70-220); POTASSIUM 4.2 mmol/L (3.5-5.1); SODIUM 131 mmol/L (135-144)
[2018-04-13 06:02] LABS: PHENOBARBITAL 11.4 mg/L (15.0-40.0)
[2018-04-13 06:35] LABS: MAGNESIUM 2.1 mg/dl (1.7-2.5)
[2018-04-13] MEDS: PROPOFOL 100 ML IV (08:24)
[2018-04-13] MEDS: CEFEPIME 1GM/50 ML (PMX) 50 ML IVPB ×2 (08:25→21:07)
[2018-04-13] MEDS: HEPARIN 5,000 UNIT/1 ML VIAL SC ×2 (08:27→21:08)
[2018-04-13] MEDS: BALSAM PERU/CASTOR OIL 60 GM TUBE TOP ×2 (08:30→21:09)
[2018-04-13] MEDS: COLLAGENASE 5 GM (UD JAR) TOP (08:30)
[2018-04-13] MEDS: LEVETIRACETAM IV 250 MG in DEXTROSE 5% 100 ML IVPB ×2 (10:07→21:47)
[2018-04-13] MEDS: FUROSEMIDE 20 MG INJ IV (18:18)
[2018-04-13 19:23] LABS: CREATINE KINASE < 20 IU/L (23-200)
[2018-04-13 19:35] LABS: TROPONIN-I 0.075 ng/ml (0.000-0.120)
[2018-04-13 23:46] LABS: CK-MB 0.86 ng/ml (0.0-2.4); TROPONIN-I 0.091 ng/ml (0.000-0.120)
[2018-04-13 23:48] LABS: CREATINE KINASE < 20 IU/L (23-200)
[2018-04-14] MEDS: LANSOPRAZOLE 30 MG CAP PO (05:15)
[2018-04-14 05:29] LABS: ADD MAN DIFF? NO
[2018-04-14 05:41] LABS: BASOPHILS % 0.3 % (0.0-2.0); EOSINOPHILS # 0.3 10^3/ul (0.0-0.5); EOSINOPHILS % 2.5 % (0.0-7.0); HEMOGLOBIN 8.5 g/dl (12.0-16.0); LYMPHOCYTES # 1.4 10^3/ul (0.8-2.9); LYMPHOCYTES % 11.3 % (15.0-51.0); MEAN CORPUSCULAR HEMOGLOBIN 31.1 pg (29.0-33.0); MEAN CORPUSCULAR VOLUME 91.6 fl (82.0-101.0); MEAN PLATELET VOLUME 9.9 fl (7.4-10.4); MONOCYTE # 1.1 10^3/ul (0.3-0.9); MONOCYTES % 8.7 % (0.0-11.0); NEUTROPHIL # 9.3 10^3/ul (1.6-7.5); NEUTROPHILS % 76.4 % (39.0-77.0); PLATELET COUNT 352 10^3/UL (140-415); RED BLOOD COUNT 2.73 10^6/ul (4.20-5.40); RED CELL DISTRIBUTION WIDTH 12.6 % (11.5-14.5)
[2018-04-14 05:41] LABS: WHITE BLOOD COUNT 12.1 10^3/ul (4.8-10.8)
[2018-04-14 05:50] LABS: CREATINE KINASE < 20 IU/L (23-200)
[2018-04-14 06:01] LABS: CK-MB 1.02 ng/ml (0.0-2.4); TROPONIN-I 0.084 ng/ml (0.000-0.120)
[2018-04-14 06:02] LABS: ALANINE AMINOTRANSFERASE 31 IU/L (13-69); ALBUMIN 2.2 g/dl (3.3-4.9); ALKALINE PHOSPHATASE 34 IU/L (42-121); ANION GAP 5 (5-13); ASPARTATE AMINO TRANSFERASE 25 IU/L (15-46); BLOOD UREA NITROGEN 12 mg/dl (7-20); CALCIUM 8.2 mg/dl (8.4-10.2); CARBON DIOXIDE 30 mmol/L (21-31); CHLORIDE 93 mmol/L (97-110); CREATININE 0.42 mg/dl (0.44-1.00); Estimated GFR > 60 mL/min (>60); GLUCOSE 133 mg/dl (70-220); PHOSPHORUS 4.8 mg/dl (2.5-4.9); POTASSIUM 4.6 mmol/L (3.5-5.1); SODIUM 128 mmol/L (135-144); TOTAL PROTEIN 4.4 g/dl (6.1-8.1)
[2018-04-14] MEDS: PROPOFOL 100 ML IV ×2 (09:00)
[2018-04-14] MEDS: CEFEPIME 1GM/50 ML (PMX) 50 ML IVPB ×2 (09:25→20:54)
[2018-04-14] MEDS: LEVETIRACETAM IV 250 MG in DEXTROSE 5% 100 ML IVPB ×2 (09:25→20:54)
[2018-04-14] MEDS: COLLAGENASE 5 GM (UD JAR) TOP (09:25)
[2018-04-14] MEDS: HEPARIN 5,000 UNIT/1 ML VIAL SC ×2 (09:43→20:55)
[2018-04-14] MEDS: BALSAM PERU/CASTOR OIL 60 GM TUBE TOP (09:46)
[2018-04-14 11:52] LABS: Allen Test ACCEPTAB; Arterial Base Excess 4.3 mmol/L (-3.0-3); Arterial Blood Gas Oxygen Sat 98.8 mmHG (95.0-98.0); Arterial COHb 0.3 % (0.0-3.0); Arterial Fraction of Oxyhgb 98.1 % (93.0-99.0); Arterial HCO3 27.7 mmol/L (22.0-26.0); Arterial MetHb 0.4 % (0.0-1.5); Arterial pCO2 36.2 mmhg (35-45); Blood Gas PS 10; MODE VENT - CPAP; Site Right Radial
[2018-04-15] MEDS: BALSAM PERU/CASTOR OIL 60 GM TUBE TOP ×2 (03:41→09:00)
[2018-04-15 03:57] LABS: PHENOBARBITAL 7.9 mg/L (15.0-40.0)
[2018-04-15 05:16] LABS: ADD MAN DIFF? NO
[2018-04-15 05:24] LABS: BASOPHIL # 0.1 10^3/ul (0.0-0.1); BASOPHILS % 0.5 % (0.0-2.0); EOSINOPHILS # 0.2 10^3/ul (0.0-0.5); EOSINOPHILS % 1.8 % (0.0-7.0); HEMATOCRIT 23.1 % (37.0-47.0); HEMOGLOBIN 7.9 g/dl (12.0-16.0); LYMPHOCYTES # 1.2 10^3/ul (0.8-2.9); LYMPHOCYTES % 9.9 % (15.0-51.0); MEAN CORPUSCULAR HEMOGLOBIN 31.6 pg (29.0-33.0); MEAN CORPUSCULAR HGB CONC 34.2 g/dl (32.0-37.0); MEAN CORPUSCULAR VOLUME 92.4 fl (82.0-101.0); MEAN PLATELET VOLUME 9.6 fl (7.4-10.4); MONOCYTE # 1.1 10^3/ul (0.3-0.9); MONOCYTES % 8.5 % (0.0-11.0); NEUTROPHIL # 9.8 10^3/ul (1.6-7.5); NEUTROPHILS % 78.3 % (39.0-77.0); PLATELET COUNT 343 10^3/UL (140-415); RED CELL DISTRIBUTION WIDTH 12.6 % (11.5-14.5)
[2018-04-15 05:24] LABS: WHITE BLOOD COUNT 12.5 10^3/ul (4.8-10.8)
[2018-04-15] MEDS: LANSOPRAZOLE 30 MG CAP PO (05:30)
[2018-04-15 06:19] LABS: ALANINE AMINOTRANSFERASE 26 IU/L (13-69); ALBUMIN 2.5 g/dl (3.3-4.9); ALBUMIN/GLOBULIN RATIO 0.96; ALKALINE PHOSPHATASE 31 IU/L (42-121); ANION GAP 5 (5-13); ASPARTATE AMINO TRANSFERASE 23 IU/L (15-46); BLOOD UREA NITROGEN 12 mg/dl (7-20); CALCIUM 8.3 mg/dl (8.4-10.2); CARBON DIOXIDE 28 mmol/L (21-31); CHLORIDE 96 mmol/L (97-110); Estimated GFR > 60 mL/min (>60); GLUCOSE 117 mg/dl (70-220); SODIUM 129 mmol/L (135-144); TOTAL PROTEIN 5.1 g/dl (6.1-8.1)
[2018-04-15 06:20] LABS: POTASSIUM 4.5 mmol/L (3.5-5.1)
[2018-04-15] MEDS: HEPARIN 5,000 UNIT/1 ML VIAL SC (09:00)
[2018-04-15] MEDS: CEFEPIME 1GM/50 ML (PMX) 50 ML IVPB (09:00)
[2018-04-15] MEDS: COLLAGENASE 5 GM (UD JAR) TOP (09:00)
[2018-04-15] MEDS: PROPOFOL 100 ML IV (09:00)
[2018-04-15 09:34] LABS: PHOSPHORUS 4.3 mg/dl (2.5-4.9)
[2018-04-15 09:34] LABS: MAGNESIUM 1.9 mg/dl (1.7-2.5)
[2018-04-15] MEDS: LEVETIRACETAM IV 250 MG in DEXTROSE 5% 100 ML IVPB (10:03)
[2018-04-15] MEDS ORDERED: DIMETHICONE STICK TOP ×2 (12:30)
[2018-04-15] MEDS ORDERED: ARTIFICIAL TEARS 15 ML OPH BOTH EYES (12:30)
[2018-04-15] MEDS ORDERED: ONDANSETRON 4 MG INJ IV (14:00)
[2018-04-15] MEDS ORDERED: ATROPINE 1% 5 ML OPH SL (14:00)
[2018-04-15] MEDS: LORAZEPAM 2 MG INJ IV (15:15)
[2018-04-15] MEDS: morphine 2 MG INJ IV (15:16)
[2018-04-15] MEDS: morphine (DRIP) 100 MG/100 ML 100 ML IV (15:27)
[2018-04-15] MEDS: SCOPOLAMINE 1.5 MG PATCH TRANSDERM (17:13)
[2018-04-15 22:55] LABS: VARICELLA-ZOSTER VIRUS AB IgM 0.53
[2018-04-16] MEDS: ARTIFICIAL TEARS 15 ML OPH BOTH EYES ×2 (02:49→18:22)
[2018-04-16] MEDS: ATROPINE 1% 5 ML OPH SL ×3 (04:31→18:23)
[2018-04-16] MEDS: morphine (DRIP) 100 MG/100 ML 100 ML IV ×4 (06:38→18:25)
[2018-04-16] MEDS: LORAZEPAM 2 MG INJ IV (10:53)
[2018-04-17] MEDS: morphine (DRIP) 100 MG/100 ML 100 ML IV (05:53)
[2018-04-17] MEDS: LORAZEPAM 2 MG INJ IV (08:12)
[2018-04-17] MEDS: ARTIFICIAL TEARS 15 ML OPH BOTH EYES (08:12)
[2018-04-17] MEDS: ATROPINE 1% 5 ML OPH SL (08:12)
[2018-04-17] MEDS: ACETAMINOPHEN 650 MG SUPP PR (10:37)
== END 2018-04-17 12:08 | disposition expired | DRG 100 ==
LOC: MS1 04-15 18:10 → 6WM 22:12 → ICU 04-04 17:50
PROVIDERS: Hospitalist
PROC: 0BH17EZ Insertion of Endotracheal Airway into Trachea, Via Natural or Artificial Opening (ICD-10-PCS; principal; 2018-04-04)
PROC: 5A1955Z Respiratory Ventilation, Greater than 96 Consecutive Hours (ICD-10-PCS; 2018-04-04)
PROC: 02HV33Z Insertion of Infusion Device into Superior Vena Cava, Percutaneous Approach (ICD-10-PCS; 2018-04-05)
DX: G40.901 Epilepsy, unspecified, not intractable, with status epilepticus (principal); A41.9 Sepsis, unspecified organism; R65.21 Severe sepsis with septic shock; J69.0 Pneumonitis due to inhalation of food and vomit; J96.00 Acute respiratory failure, unspecified whether with hypoxia or hypercapnia; A92.31 West Nile virus infection with encephalitis; G93.40 Encephalopathy, unspecified; E87.2 Acidosis; E87.1 Hypo-osmolality and hyponatremia; I47.1 Supraventricular tachycardia; N39.0 Urinary tract infection, site not specified; D64.9 Anemia, unspecified; E78.5 Hyperlipidemia, unspecified; F02.80 Dementia in other diseases classified elsewhere, unspecified severity, without behavioral disturbance, psychotic disturbance, mood disturbance, and anxiety; I10 Essential (primary) hypertension; Z66 Do not resuscitate; Z74.01 Bed confinement status
CPT/HCPCS: 36569; 36600; 70553; 71045; 76937; 80048; 80053; 80061; 80076; 80184; 80185; 81001; 82140; 82270; 82550; 82553; 82803; 82962; 83036; 83605; 83735; 84100; 84439; 84443; 84484; 85025; 85610; 85730; 86592; 86692; 86704; 86803; 87040; 87070; 87081; 87086; 87340; 92610; 93306; 94002; 94003; 94770; 95819; 97165